=== PATIENT | male | born 1985 | race Caucasian/White ===

== ENCOUNTER 2019-03-25 16:43 | Emergency (ER) | payer BC ==
[~2019-03-25] VITALS: Ht 185.4 cm; Wt 107.5 kg
--- NOTE | 2019-03-25 17:20 | NUR ---
PT CHANGED INTO A GOWN.
--- NOTE | 2019-03-25 17:23 | NUR ---
ROSALIO IN PROGRESS AT THE BEDSIDE.
[2019-03-25] MEDS ORDERED: BISACODYL SUPP (10 MG) 10 MG/SUPP.RECT SUPP.RECT RC ONE ×2 (17:30→17:34)
--- NOTE | 2019-03-25 17:52 | NUR ---
DIGITAL DISIMPACTION DONE BY Maria Teresa BENAVIDES NP. LG QUANTITY OF IMPACTED STOOL REMOVED. PT ALSO REC'D A DULCOLAX SUPOSITORY. PT TOLERATED THE PROCEDURE WELL.
[2019-03-25] MEDS ORDERED: SORBITOL SOLUTION 30 ML PO ONE (18:00)
[2019-03-25] MEDS ORDERED: LACTULOSE 10 G/15 ML UDC (PYXIS) PO ONE (18:00)
[2019-03-25] MEDS ORDERED: SORBITOL SOLUTION 30 ML ONE (18:01)
[2019-03-25] MEDS ORDERED: LACTULOSE 10 G/15 ML UDC (PYXIS) ONE ×2 (18:01→18:06)
[2019-03-25] MEDS ORDERED: SODIUM POLYSTYRENE SULFONATE 15 G/60 ML BOTTLE ONE (18:09)
--- NOTE | 2019-03-25 18:24 | NUR ---
PT REC'D 40G LACTULOSE AND 30ML SORBITAL PO. PT TOLERATED PO WELL. PT WAS IMMEDIATELY D/C'D HOME AT PT'S REQUEST. PT'S IS DRIVING PT HOME. PT REC'D A CHUX FOR THE CAR SEAT. Patient discharged to home in stable condition. Written and verbal after care instructions given. Patient verbalizes understanding of instruction AND RX. PT AMBULATED OUT WITH A STEADY GAIT. VSS.
[2019-03-25 18:26] VITALS: BP 132/74
== END 2019-03-25 18:27 | disposition home or self-care (01) ==
LOC: ER 16:50
DX: K56.41 Fecal impaction (principal); Z98.890 Other specified postprocedural states
CPT/HCPCS: 74018